=== PATIENT | female | born 1970 | race African-American/Black ===

== ENCOUNTER 2019-03-28 12:45 | Inpatient (IN) ==
[2019-03-28] MEDS ORDERED: ACETAMINOPHEN 325 MG TABLET PO PRN (16:29)
[2019-03-28 16:57] LABS: Basophils % 0.5 % (0.0-0.8); Eosinophils # 0.1 10*3/uL (0.0-0.87); Eosinophils % 1.8 % (0.00-10.9); Hematocrit 35.1 VOL% (35.7-47.0); Hemoglobin 10.6 GM/DL (12.0-16.0); Immature Granulocytes % 0.2 %; Immature Granulocytes Absolute 0.01 #; Lymphocytes # 2.4 10*3/uL (1.4-4.0); Lymphocytes % 43.2 % (21.3-54.2); Mean Corpuscular HGB Conc 30.2 GM/DL (32-36); Mean Corpuscular Volume 87.5 FL (87-102); Mean Platelet Volume 10.9 FL (9.6-12.0); Monocytes % 8.5 % (1.7-12.7); Neutrophils % 45.8 % (38.7-73.9); Platelet Count 436 T/CUMM (130-400); Red Blood Count 4.01 MC/CUMM (3.8-5.5); Red Cell Distribution Width 14.5 % (9.3-17.3); White Blood Count 5.6 T/CUMM (4-12)
[2019-03-28] MEDS ORDERED: SODIUM CHLORIDE 0.9% 1,550 ML IV ONE (17:45)
[2019-03-28] MEDS ORDERED: SODIUM CHLORIDE 0.9% 4,200 ML IV ONE (17:45)
[2019-03-28] MEDS ORDERED: VANCOMYCIN 1,000 MG VIAL ONE (17:47)
[2019-03-28] MEDS ORDERED: hydrALAZINE 20 MG/1 ML VIAL IV PRN (18:06)
[2019-03-28 19:05] LABS: Albumin 2.9 G/DL (3.4-5.0); Bilirubin,Total 0.4 MG/DL (0.2-1.0); Calcium 8.7 MG/DL (8.5-10.1); Osmolality,Calculated 277.3 MOS/KG (273-304); Total Protein 8.8 G/DL (6.4-8.3)
[2019-03-28] MEDS ORDERED: INFLUENZA VIRUS VACCINE 0.5 ML SYRINGE IM ONE (20:28)
[2019-03-28] MEDS ORDERED: MELOXICAM 7.5 MG TABLET PO PRN (20:37)
[2019-03-28] MEDS: carvediloL 6.25 MG TABLET PO SCH (21:37)
[2019-03-28 22:59] LABS: Albumin 2.6 G/DL (3.4-5.0); Bilirubin,Total 0.4 MG/DL (0.2-1.0); Calcium 8.3 MG/DL (8.5-10.1); Osmolality,Calculated 282.1 MOS/KG (273-304); Total Protein 7.4 G/DL (6.4-8.3)
[2019-03-28] MEDS: VANCOMYCIN INJ 2,000 MG in SODIUM CHLORIDE 0.9% 500 ML IV SCH (23:52)
[2019-03-29 05:35] LABS: Basophils % 0.3 % (0.0-0.8); Eosinophils % 0.5 % (0.00-10.9); Hematocrit 29.7 VOL% (35.7-47.0); Lymphocytes # 1.6 10*3/uL (1.4-4.0); Lymphocytes % 45.1 % (21.3-54.2); Mean Corpuscular HGB Conc 30.3 GM/DL (32-36); Mean Corpuscular Volume 86.1 FL (87-102); Mean Platelet Volume 10.5 FL (9.6-12.0); Monocytes % 6.3 % (1.7-12.7); Neutrophils % 47.8 % (38.7-73.9); Platelet Count 399 T/CUMM (130-400); Red Blood Count 3.45 MC/CUMM (3.8-5.5); Red Cell Distribution Width 14.6 % (9.3-17.3); White Blood Count 3.6 T/CUMM (4-12)
[2019-03-29] MEDS: ENOXAPARIN 40 MG/0.4 ML SYRINGE SUBCUT SCH (06:10)
[2019-03-29] MEDS: VANCOMYCIN INJ 2,000 MG in SODIUM CHLORIDE 0.9% 500 ML IV SCH ×2 (13:04→23:31)
[2019-03-29] MEDS ORDERED: LIDOCAINE 1% 20 ML VIAL ONE (14:31)
[2019-03-29] MEDS ORDERED: BUPIVACAINE MPF 0.25% 30 ML VIAL ONE (14:31)
[2019-03-29] MEDS ORDERED: ONDANSETRON 4 MG/2 ML VIAL IV PRN (15:41)
[2019-03-29] MEDS ORDERED: ONDANSETRON 4 MG/2 ML VIAL ONE (15:43)
[2019-03-29] MEDS ORDERED: MORPHINE 10 MG/1 ML VIAL ONE (15:43)
[2019-03-29] MEDS: MORPHINE 10 MG/1 ML VIAL IV PRN ×4 (15:50→16:15)
[2019-03-29] MEDS ORDERED: PROPOFOL 200 MG/20 ML VIAL IV ONE (16:29)
[2019-03-29] MEDS ORDERED: MIDAZOLAM 2 MG/2 ML VIAL ONE (16:29)
[2019-03-29] MEDS ORDERED: LIDOCAINE 2% 5 ML VIAL ONE (16:29)
[2019-03-29] MEDS ORDERED: KETAMINE 500 MG/10 ML VIAL ONE (16:29)
[2019-03-29] MEDS ORDERED: fentaNYL 100 MCG/2 ML VIAL ONE (16:30)
[2019-03-29] MEDS: PANTOPRAZOLE 40 MG TABLET PO SCH (16:48)
[2019-03-29] MEDS: FUROSEMIDE 20 MG TABLET PO SCH (16:48)
[2019-03-29] MEDS: carvediloL 6.25 MG TABLET PO SCH ×2 (17:37→18:04)
[2019-03-29] MEDS: carvediloL 12.5 MG TABLET PO SCH (21:19)
[2019-03-29] MEDS: ONDANSETRON 4 MG/2 ML VIAL IV PRN (23:11)
[2019-03-30] MEDS: ENOXAPARIN 40 MG/0.4 ML SYRINGE SUBCUT SCH (05:08)
[2019-03-30] MEDS: carvediloL 12.5 MG TABLET PO SCH ×2 (08:51→23:37)
[2019-03-30] MEDS: FUROSEMIDE 20 MG TABLET PO SCH (08:51)
[2019-03-30] MEDS: PANTOPRAZOLE 40 MG TABLET PO SCH (08:51)
[2019-03-30] MEDS: carvediloL 6.25 MG TABLET PO SCH ×2 (08:51→16:23)
[2019-03-30] MEDS ORDERED: POTASSIUM CHLORIDE 20 MEQ TABLET PO ONE (08:57)
[2019-03-30] MEDS: VANCOMYCIN INJ 2,000 MG in SODIUM CHLORIDE 0.9% 500 ML IV SCH (13:11)
[2019-03-31] MEDS: ENOXAPARIN 40 MG/0.4 ML SYRINGE SUBCUT SCH (05:11)
[2019-03-31] MEDS: VANCOMYCIN INJ 2,000 MG in SODIUM CHLORIDE 0.9% 500 ML IV SCH ×2 (05:37→23:17)
[2019-03-31] MEDS: carvediloL 6.25 MG TABLET PO SCH ×2 (07:36→16:04)
[2019-03-31] MEDS: PANTOPRAZOLE 40 MG TABLET PO SCH (08:34)
[2019-03-31] MEDS: carvediloL 12.5 MG TABLET PO SCH ×2 (08:34→20:12)
[2019-03-31] MEDS: FUROSEMIDE 20 MG TABLET PO SCH (08:34)
[2019-03-31 09:46] LABS: Basophils % 0.5 % (0.0-0.8); Eosinophils # 0.1 10*3/uL (0.0-0.87); Eosinophils % 2.3 % (0.00-10.9); Hemoglobin 9.5 GM/DL (12.0-16.0); Immature Granulocytes % 1.2 %; Immature Granulocytes Absolute 0.07 #; Lymphocytes # 2.2 10*3/uL (1.4-4.0); Lymphocytes % 36.8 % (21.3-54.2); Mean Corpuscular HGB Conc 29.7 GM/DL (32-36); Mean Corpuscular Volume 87.4 FL (87-102); Mean Platelet Volume 10.9 FL (9.6-12.0); Monocytes % 8.3 % (1.7-12.7); NRBC # 0.02 10*3/uL; Neutrophils % 50.9 % (38.7-73.9); Platelet Count 390 T/CUMM (130-400); Red Blood Count 3.66 MC/CUMM (3.8-5.5)
[2019-03-31 10:16] LABS: Albumin 2.7 G/DL (3.4-5.0); Bilirubin,Total 0.5 MG/DL (0.2-1.0); Calcium 8.7 MG/DL (8.5-10.1); Osmolality,Calculated 280.1 MOS/KG (273-304); Total Protein 7.9 G/DL (6.4-8.3)
[2019-04-01] MEDS: ONDANSETRON 4 MG/2 ML VIAL IV PRN (00:46)
[2019-04-01 05:13] LABS: Basophils % 0.4 % (0.0-0.8); Eosinophils # 0.1 10*3/uL (0.0-0.87); Eosinophils % 2.4 % (0.00-10.9); Hematocrit 28.8 VOL% (35.7-47.0); Hemoglobin 8.6 GM/DL (12.0-16.0); Immature Granulocytes % 0.2 %; Immature Granulocytes Absolute 0.01 #; Lymphocytes # 1.7 10*3/uL (1.4-4.0); Lymphocytes % 31.3 % (21.3-54.2); Mean Corpuscular HGB Conc 29.9 GM/DL (32-36); Mean Corpuscular Volume 86.2 FL (87-102); Mean Platelet Volume 10.5 FL (9.6-12.0); Monocytes % 8.2 % (1.7-12.7); Neutrophils % 57.5 % (38.7-73.9); Platelet Count 368 T/CUMM (130-400); Red Blood Count 3.34 MC/CUMM (3.8-5.5); White Blood Count 5.5 T/CUMM (4-12)
[2019-04-01] MEDS: ENOXAPARIN 40 MG/0.4 ML SYRINGE SUBCUT SCH (05:18)
[2019-04-01 05:49] LABS: Albumin 2.6 G/DL (3.4-5.0); Bilirubin,Total 0.7 MG/DL (0.2-1.0); Calcium 8.3 MG/DL (8.5-10.1); Osmolality,Calculated 292.3 MOS/KG (273-304); Total Protein 7.1 G/DL (6.4-8.3)
[2019-04-01] MEDS: PANTOPRAZOLE 40 MG TABLET PO SCH (08:27)
[2019-04-01] MEDS: FUROSEMIDE 20 MG TABLET PO SCH (08:27)
[2019-04-01] MEDS: carvediloL 12.5 MG TABLET PO SCH (08:27)
[2019-04-01 11:47] VITALS: BP 132/91
[2019-04-01] MEDS: VANCOMYCIN INJ 2,000 MG in SODIUM CHLORIDE 0.9% 500 ML IV SCH (18:44)
== END 2019-04-01 15:43 | disposition home health service (06) | DRG 571 ==
LOC: N.EDINP 12:45 → N.ED 12:45 → N.2W 18:27 → SUATTDRO 20:37 → N.3E 03-29 16:31
PROVIDERS: ADMIT Surgery; ATTEND Internal Medicine